=== PATIENT | male | born 2000 | race Caucasian/White ===

== ENCOUNTER 2022-08-13 16:29 | Observation (INO) ==
[2022-08-13] MEDS ORDERED: NS 1,000 ML IV 1,000 ML IV ONE ×2 (16:53→19:00)
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
[2022-08-13] MEDS ORDERED: NS 1,000 ML IV 1,000 ML ONE ×2 (16:56→19:03)
[2022-08-13] MEDS ORDERED: ZOFRAN INJ 4 MG VIAL IVP ONE (17:13)
[2022-08-13] MEDS ORDERED: ZOFRAN INJ 4 MG VIAL ONE (17:15)
[2022-08-13 17:21] LABS: BASOPHILS # (AUTO) 0.1 X10^3/uL (0.0-0.1); BASOPHILS % (AUTO) 1.7 % (0.2-1.0); EOSINOPHILS # (AUTO) 0.2 x10^3/uL (0.0-0.2); EOSINOPHILS % (AUTO) 2.5 % (0.9-2.9); HEMOGLOBIN 13.1 g/dL (13.5-18.0); LYMPHOCYTES # (AUTO) 2.1 X10^3/uL (1.3-2.9); LYMPHOCYTES % (AUTO) 29.7 % (21.0-51.0); MEAN CORPUSCULAR HEMOGLOBIN 30.3 pg (27.0-34.0); MEAN CORPUSCULAR HGB CONC 34.6 g/dL (33.0-35.0); MEAN CORPUSCULAR VOLUME 87.6 fL (80.0-100.0); MEAN PLATELET VOLUME 7.3 fL (7.4-11.0); MONOCYTES # (AUTO) 0.5 x10^3/uL (0.3-0.8); MONOCYTES % (AUTO) 6.9 % (0.0-13.0); NEUTROPHILS # (AUTO) 4.3 x10^3/uL (2.2-4.8); NEUTROPHILS % (AUTO) 59.2 % (42.0-75.0); PLATELET COUNT 277 X10^3/uL (150.0-450.0); RED BLOOD COUNT 4.34 X10^6/uL (4.7-6.0); RED CELL DISTRIBUTION WIDTH 13.3 % (11.6-16.5); WHITE BLOOD COUNT 7.2 X10^3/uL (3.6-10.0)
[2022-08-13 17:31] LABS: ALANINE AMINOTRANSFERASE 19 Units/L (12-78); ALBUMIN 3.6 g/dL (3.4-5.0); ALKALINE PHOSPHATASE 61 Units/L (46-116); ASPARTATE AMINO TRANSFERASE 12 Units/L (15-37); BLOOD UREA NITROGEN 24 mg/dL (7-18); CALCIUM 8.1 mg/dL (8.5-10.1); CHLORIDE 101 mmol/L (98-107); CREATININE 1.03 mg/dL (0.70-1.30); GLUCOSE 101 mg/dL (65-99); SODIUM 137 mmol/L (136-145); TOTAL PROTEIN 6.1 g/dL (6.4-8.2); eGFR NON BLACK RACES > 60 (>60)
[2022-08-13 17:35] LABS: GASTRIC OCCULT BLOOD POSITIVE (NEGATIVE); PH,GASTRIC FLUID 3
--- NOTE | 2022-08-13 17:46 | CT ---
HISTORYwitnessed seizureSTUDYBRAIN W/O CONCOMPARISONNoneTECHNIQUEMult iple axial images of the head without contrast. Dose reduction techniques including Automated Exposure Control (AEC) and adjustment of mA and kV were utilized.Contrast: NoneFINDINGSBRAIN PARENCHYMA: No acute hemorrhage, infarct, mass, or mass effect.Howard-white differentiation is maintained.The brain parenchyma has normal density.VENTRICLES/EXTRA-AXIAL SPACES: Unremarkable size and configuration. No hydrocephalus or extra-axial fluid collections.EXTRACRANIAL STRUCTURES:Unremarkable bones and soft tissues. Visualized paranasal sinuses and mastoids are clear.IMPRESSIONNegative.Electronically signed by: Mateo Martin (Aug 13, 2022 17:45:16)
[2022-08-13] MEDS ORDERED: PROTONIX INJ 40 MG VIAL IVP ONE (17:49)
[2022-08-13] MEDS ORDERED: PROTONIX INJ 40 MG VIAL ONE (17:53)
--- NOTE | 2022-08-13 18:25 | CT ---
HISTORYRECTAL BLEEDING.STUDYABDOMEN/PELVIS W/O CONCOMPARISONNoneTECHNIQUEMultiple CT axial images of the abdomen and pelvis were obtained without IV contrast. Coronal and sagittal images were reconstructed. Dose reduction techniques included Automated Exposure Control (AEC) and adjustment of mA and kV.FINDINGSThe lung bases are clear. Heart size is normal.The liver is normal in size and configuration. The gallbladder has no inflammation around it. The spleen is normal in size and shape.The adrenal glands are normal. The pancreas is normal.No abnormal calcifications are present in the kidneys, ureters, or urinary bladder.Renal enhancement is symmetric with no solid mass. There is no hydronephrosis or significant perirenal edema. And The bladder is normally distended. It has no wall thickening or perivesical edema.The bowel is not dilated. There is no wall thickening in the bowel or edema around the bowel. A normal appendix is not identified. But there is no inflammation around the cecum or at the expected location of the appendix. No significant diverticular disease.There is no significant bone abnormality.IMPRESSION1. No acute finding or significant abnormalityElectronically signed by: Dalton Carter (Aug 13, 2022 18:21:37)
[2022-08-13] MEDS ORDERED: ZOFRAN INJ 4 MG VIAL IVP PRN (19:04)
[2022-08-13 20:01] LABS: BILIRUBIN,URINE NEGATIVE (NEGATIVE); BLOOD/HEMOGLOBIN,URINE NEGATIVE (NEGATIVE); GLUCOSE, URINE NEGATIVE (NEGATIVE); KETONES,URINE NEGATIVE (NEGATIVE); LEUKOCYTE ESTERASE ,URINE NEGATIVE (NEGATIVE); NITRITES,URINE NEGATIVE (NEGATIVE); PROTEIN,URINE NEGATIVE (NEGATIVE); UROBILINOGEN,URINE NORMAL (NORMAL)
[2022-08-13 20:06] LABS: APPEARANCE,URINE CLEAR (CLEAR); COLOR,URINE YELLOW (YELLOW)
[2022-08-14 02:41] VITALS: BMI 21.2
[2022-08-14 05:20] LABS: BASOPHILS # (AUTO) 0.1 X10^3/uL (0.0-0.1); EOSINOPHILS # (AUTO) 0.4 x10^3/uL (0.0-0.2); EOSINOPHILS % (AUTO) 5.3 % (0.9-2.9); HEMATOCRIT 32.1 % (42.0-54.0); HEMOGLOBIN 11.3 g/dL (13.5-18.0); LYMPHOCYTES # (AUTO) 2.5 X10^3/uL (1.3-2.9); LYMPHOCYTES % (AUTO) 34.5 % (21.0-51.0); MEAN CORPUSCULAR HEMOGLOBIN 30.9 pg (27.0-34.0); MEAN CORPUSCULAR HGB CONC 35.2 g/dL (33.0-35.0); MEAN CORPUSCULAR VOLUME 87.9 fL (80.0-100.0); MEAN PLATELET VOLUME 7.6 fL (7.4-11.0); MONOCYTES # (AUTO) 0.6 x10^3/uL (0.3-0.8); MONOCYTES % (AUTO) 7.6 % (0.0-13.0); NEUTROPHILS # (AUTO) 3.8 x10^3/uL (2.2-4.8); NEUTROPHILS % (AUTO) 51.6 % (42.0-75.0); PLATELET COUNT 231 X10^3/uL (150.0-450.0); RED BLOOD COUNT 3.66 X10^6/uL (4.7-6.0); RED CELL DISTRIBUTION WIDTH 13.1 % (11.6-16.5); WHITE BLOOD COUNT 7.3 X10^3/uL (3.6-10.0)
[2022-08-14 05:42] LABS: ALANINE AMINOTRANSFERASE 17 Units/L (12-78); ALBUMIN 3.3 g/dL (3.4-5.0); ALKALINE PHOSPHATASE 55 Units/L (46-116); ASPARTATE AMINO TRANSFERASE 12 Units/L (15-37); BLOOD UREA NITROGEN 18 mg/dL (7-18); CARBON DIOXIDE 28.7 mmol/L (21-32); CHLORIDE 106 mmol/L (98-107); COR CA(FOR HYPOALB) 8.6 mg/dL (8.5-10.1); CREATININE 1.09 mg/dL (0.70-1.30); GLUCOSE 86 mg/dL (65-99); POTASSIUM 3.8 mmol/L (3.5-5.1); SODIUM 140 mmol/L (136-145); TOTAL PROTEIN 5.5 g/dL (6.4-8.2); eGFR NON BLACK RACES > 60 (>60)
[2022-08-14] MEDS ORDERED: PROTONIX INJ 40 MG VIAL IVP ONE (08:00)
[2022-08-14 09:14] VITALS: RESP 18
--- NOTE | 2022-08-14 11:36 | DR.H&P ---
H&P History & Physical for Day of: H&P Date: 08/14/22 Chief Complaint Chief Complaint: Diarrhea all morning this last 2 episodes of bloody and feeling of dizziness like he is going to pass out, headache and lightheadedness. Allergies Allergies Allergy/AdvReac Type Severity Reaction Status Date / Time No Known Allergies Allergy Verified 08/13/22 16:30 History of Present Illness History of Present Illness: This is a pleasant 22-year-old white male who presented to the emergency department yesterday after having several episodes of diarrhea in which the last 2 were bloody. In the ER he did throw up 1 time which had the appearance of coffee ground's. He also reports being lightheaded earlier in the day and he also had a headache and took some Advil which helped his headache resolved. The nurses question him after he got up to the floor and reports that he told them he takes a lot of ibuprofen/Advil for chronic headaches weekly up to 1200 mg at the time. Patient had a CT of the abdomen and pelvis in the ER and it came back as normal. He was hypotensive in the emergency department as well and mildly hypotensive this morning. His hemoglobin has dropped from 13.1 to 11.3 this morning. He reports no other medical conditions and he does not take any prescription medications at this time. Patient also started seizing when I started drawing his blood last night in the emergency department and he has no previous history of seizures. We will plan on getting MRI of his brain. Past Surgical History Surgical History: Tonsillectomy Social History Does patient currently use any type of tobacco product: Yes Have you used tobacco products in the last 12 months: Yes Type of Tobacco Use: Vapes Does any household member use tobacco: No Alcohol Use: Rarely Drug Use: None Medications Home Medications: Home Medications Medication Instructions Recorded Confirmed Type NK 08/14/22 08/14/22 History Labs Result Diagrams: 08/14/22 04:45 08/14/22 04:45 Labs: Laboratory WBC 7.3 X10^3/uL (3.6-10.0) 08/14/22 04:45 RBC 3.66 X10^6/uL (4.7-6.0) L 08/14/22 04:45 Hgb 11.3 g/dL (13.5-18.0) L 08/14/22 04:45 Hct 32.1 % (42.0-54.0) L 08/14/22 04:45 MCV 87.9 fL (80.0-100.0) 08/14/22 04:45 MCH 30.9 pg (27.0-34.0) 08/14/22 04:45 MCHC 35.2 g/dL (33.0-35.0) H 08/14/22 04:45 RDW 13.1 % (11.6-16.5) 08/14/22 04:45 Plt Count 231 X10^3/uL (150.0-450.0) 08/14/22 04:45 MPV 7.6 fL (7.4-11.0) 08/14/22 04:45 Neut % (Auto) 51.6 % (42.0-75.0) 08/14/22 04:45 Lymph % (Auto) 34.5 % (21.0-51.0) 08/14/22 04:45 [place] % (Auto) 7.6 % (0.0-13.0) 08/14/22 04:45 Eos % (Auto) 5.3 % (0.9-2.9) H 08/14/22 04:45 Baso % (Auto) 1.0 % (0.2-1.0) 08/14/22 04:45 Neut # (Auto) 3.8 x10^3/uL (2.2-4.8) 08/14/22 04:45 Lymph # (Auto) 2.5 X10^3/uL (1.3-2.9) 08/14/22 04:45 [place] # (Auto) 0.6 x10^3/uL (0.3-0.8) 08/14/22 04:45 Eos # (Auto) 0.4 x10^3/uL (0.0-0.2) H 08/14/22 04:45 Baso # (Auto) 0.1 X10^3/uL (0.0-0.1) 08/14/22 04:45 Absolute Nucleated RBC 0.1 /100WBC 08/14/22 04:45 Sodium 140 mmol/L (136-145) 08/14/22 04:45 Corrected Sodium TNP 08/14/22 04:45 Potassium 3.8 mmol/L (3.5-5.1) 08/14/22 04:45 Chloride 106 mmol/L (98-107) 08/14/22 04:45 Carbon Dioxide 28.7 mmol/L (21-32) 08/14/22 04:45 BUN 18 mg/dL (7-18) 08/14/22 04:45 Creatinine 1.09 mg/dL (0.70-1.30) 08/14/22 04:45 Est GFR (MDRD) Af Amer > 60 (>60) 08/14/22 04:45 Est GFR (MDRD) Non-Af > 60 (>60) 08/14/22 04:45 Glucose 86 mg/dL (65-99) 08/14/22 04:45 POC Glucose (mg/dL) 96 mg/dL (65-99) 08/13/22 17:15 Calcium 8.0 mg/dL (8.5-10.1) L 08/14/22 04:45 Corrected Calcium 8.6 mg/dL (8.5-10.1) 08/14/22 04:45 Total Bilirubin 0.20 mg/dL (0.2-1.0) 08/14/22 04:45 AST 12 Units/L (15-37) L 08/14/22 04:45 ALT 17 Units/L (12-78) 08/14/22 04:45 Alkaline Phosphatase 55 Units/L (46-116) 08/14/22 04:45 Total Protein 5.5 g/dL (6.4-8.2) L 08/14/22 04:45 Albumin 3.3 g/dL (3.4-5.0) L 08/14/22 04:45 Globulin 2.2 g/dL (2.5-4.5) L 08/14/22 04:45 Albumin/Globulin Ratio 1.5 Ratio (1.1-2.1) 08/14/22 04:45 Specimen Type Clean catch urine 08/13/22 19:50 Urine Color Yellow (YELLOW) 08/13/22 19:50 Urine Appearance Clear (CLEAR) 08/13/22 19:50 Urine pH 6.0 (5.0 - 8.0) 08/13/22 19:50 Ur Specific [place] 1.015 (1.000-1.030) 08/13/22 19:50 Urine Protein Negative (NEGATIVE) 08/13/22 19:50 Urine Glucose (UA) Negative (NEGATIVE) 08/13/22 19:50 Urine Ketones Negative (NEGATIVE) 08/13/22 19:50 Urine Blood Negative (NEGATIVE) 08/13/22 19:50 Urine Nitrite Negative (NEGATIVE) 08/13/22 19:50 Urine Bilirubin Negative (NEGATIVE) 08/13/22 19:50 Urine Urobilinogen Normal (NORMAL) 08/13/22 19:50 Ur Leukocyte Esterase Negative (NEGATIVE) 08/13/22 19:50 Gastric Fluid pH 3 08/13/22 17:23 Gastric Occult Blood Positive (NEGATIVE) A 08/13/22 17:23 Stl Occult Blood (IFOB) Positive (NEGATIVE) A 08/13/22 22:42 Review of Systems Constitutional: No Symptoms Reported Eyes: No Symptoms Reported ENT: No Symptoms Reported Respiratory: No Symptoms Reported Cardiovascular: No Symptoms Reported Gastrointestinal: No Symptoms Reported Genitourinary: No Symptoms Reported Musculoskeletal: No Symptoms Reported Skin: No Symptoms Reported Neurological: Other (Headaches) Physical Exam Vital Signs: Vital Signs Temperature 98.0 F Temperature 98 F Pulse Rate [Left Brachial] 59 Pulse Rate [Left Brachial] 55 Respiratory Rate 18 Respiratory Rate 16 Blood Pressure [Left Arm] 105/58 Blood Pressure [Left Arm] 95/53 O2 Sat by Pulse Oximetry 99 O2 Sat by Pulse Oximetry 98 08/14/22 08:00 Temperature 98.0 F Temperature Source Oral Pulse Rate [Left Brachial] 59 L Pulse Assessment Method [Left Brachial] Dinamap Respiratory Rate 18 O2 Sat by Pulse Oximetry 99 Oxygen Delivery Method Room Air Blood Pressure [Left Arm] 105/58 Blood Pressure Mean [Left Arm] 73 Blood Pressure Source [Left Arm] Automatic Cuff Blood Pressure Position [Left Arm] Semi Rice's Oriented: Normal Eyes: Normal Ear: Normal Nose: Normal Respiratory: Clear Throughout Cardiovascular: Normal Auscultation: Bowel Sounds: Normal Palpation: Normal Tenderness: Normal Skin: Normal Musculoskeletal: Normal Psychiatric: Normal Mood Description: Calm Affect: Normal Speech Pattern: Clear and Appropriate Assessment/Plan (1) Hematemesis: Status: Acute Plan: Consult general surgery for EGD. (2) Rectal bleeding: Status: Acute Plan: Hold all NSAIDs for this patient. Consult general surgery for EGD. (3) Acute hypotension: Status: Acute Plan: IV fluid and transfuse blood if necessary. (4) New onset seizure: Narrative Support Text: Patient has no history of seizures but actively started seizing when he was having his blood drawn in the emergency department last night. Status: Acute Plan: We will monitor the patient in the meantime and check a urine drug screen on him to rule out any kind of detox causing seizure. Check MRI brain. Review H&P Reviewed: Yes Patient was examined?: Yes
[2022-08-14] MEDS ORDERED: NS 500 ML IV 500 ML IV ONE (14:03)
[2022-08-14] MEDS ORDERED: DIPRIVAN VIAL 20 ML ONE (14:10)
[2022-08-14] MEDS ORDERED: DIPRIVAN VIAL ONE (14:10)
[2022-08-14] MEDS ORDERED: MULTIHANCE INJ VIAL ONE (15:06)
[2022-08-14 16:17] VITALS: BP 114/66; PULSE 62; TEMP 98; O2SAT 100
[2022-08-14] MEDS ORDERED: CARAFATE PO SCH (16:30)
== END 2022-08-14 16:03 | disposition home or self-care (01) ==
LOC: MED/SURG 16:29 → ER 16:29 → MED/SURG 20:01
PROVIDERS: ADMIT Family Medicine; ATTEND Family Medicine
DX: R19.7 Diarrhea, unspecified; K62.5 Hemorrhage of anus and rectum; K26.3 Acute duodenal ulcer without hemorrhage or perforation; I95.89 Other hypotension; R56.9 Unspecified convulsions; R42 Dizziness and giddiness; R51.9 Headache, unspecified; E86.0 Dehydration; K92.0 Hematemesis